=== PATIENT | male | born 1995 | race Caucasian/White ===

== ENCOUNTER 2018-08-23 18:54 | Inpatient (IN) | payer MEDICAID ==
[~2018-08-23] VITALS: Ht 175.3 cm; Wt 98.1 kg
[2018-08-23] MEDS ORDERED: LORazepam 2 MG/ML VIAL IM ONE (20:30)
[2018-08-23] MEDS ORDERED: HALOPERIDOL LACTATE 5 MG/ML VIAL IM ONE (20:30)
[2018-08-23] MEDS ORDERED: DiphenhydrAMINE HCL 50 MG/ML VIAL IM ONE (20:30)
[2018-08-23 20:58] LABS: AMPHET/METH SCREEN,URINE NEGATIVE (NEGATIVE); BARBITURATE SCREEN, URINE NEGATIVE (NEGATIVE); BENZODIAZEPINES SCREEN,URINE NEGATIVE (NEGATIVE); CANNABINOID SCREEN,URINE POSITIVE (NEGATIVE); COCAINE SCREEN,URINE NEGATIVE (NEGATIVE); METHADONE SCREEN, URINE NEGATIVE (NEGATIVE); OPIATE SCREEN,URINE NEGATIVE (NEGATIVE); PHENCYCLIDINE SCREEN,URINE NEGATIVE (NEGATIVE)
[2018-08-23 22:31] LABS: BASOPHILS % (AUTO) 0.5 % (0.0-2.0); EOSINOPHILS % (AUTO) 0.8 % (1.0-6.0); HEMATOCRIT 43.6 % (41-53); HEMOGLOBIN 14.5 g/dL (13.5-17.5); LYMPHOCYTES # (AUTO) 2.6 K/uL (1.0-4.8); LYMPHOCYTES % (AUTO) 22.2 % (22.0-44.0); MEAN CORPUSCULAR HEMOGLOBIN 27.5 pg (26.0-34.0); MEAN CORPUSCULAR HGB CONC 33.2 G/dL (31.0-37.0); MEAN CORPUSCULAR VOLUME 83 fL (80-100); MONOCYTES % (AUTO) 8.3 % (2.0-9.0); NEUTROPHILS # (AUTO) 7.9 K/uL (1.8-7.7); NEUTROPHILS % (AUTO) 68.2 % (40.0-70.0); PLATELET COUNT (AUTO) 258 K/uL (150-450); RED BLOOD CELL COUNT(AUTO) 5.27 MIL/uL (4.50-5.90); RED CELL DISTRIBUTION WIDTH 13.1 % (11.5-14.5)
[2018-08-23 22:43] LABS: ANION GAP 9 mmol/L (8-16); CALCIUM, TOTAL 8.8 mg/dL (8.8-10.5); CARBON DIOXIDE 26 mmol/L (22-29); CHLORIDE 104 mmol/L (98-107); CREATININE 0.84 mg/dL (0.60-1.30); GLOMERULAR FILTR. RATE CALC > 60 mL/min (>60); GLUCOSE,RANDOM 94 mg/dL (70-110); POTASSIUM 3.5 mmol/L (3.5-5.1); SODIUM SERUM 139 mmol/L (136-145); UREA NITROGEN, BLOOD 9 mg/dL (7-18)
[2018-08-23 22:48] LABS: ALANINE AMINOTRANSFERASE 24 U/L (12-78); ALBUMIN 3.4 g/dL (3.4-5.0); ALKALINE PHOSPHATASE 103 U/L (46-116); ASPARTATE AMINOTRANSFERASE 22 U/L (15-37); BILIRUBIN,TOTAL 0.2 mg/dL (0.1-1.0); TOTAL PROTEIN, SERUM 7.1 g/dL (6.4-8.2)
[2018-08-24 03:01] LABS: APPEARANCE,URINE CLEAR (CLEAR); BILIRUBIN,URINE NEGATIVE (NEGATIVE); GLUCOSE, URINE (UA) NEGATIVE (NEGATIVE); KETONES,URINE NEGATIVE (NEGATIVE); LEUKOCYTE ESTERASE ,URINE NEGATIVE (NEGATIVE); NITRATE,URINE NEGATIVE (NEGATIVE); OCCULT BLOOD,URINE NEGATIVE (NEGATIVE); PH,URINE 6.5 (5.0-8.0); PROTEIN,URINE NEGATIVE (NEGATIVE); UROBILINOGEN,URINE 0.2 mg/dL (<=1.0)
[2018-08-24 03:55] VITALS: BP 137/60
[2018-08-24 08:22] VITALS: BP 102/64
[2018-08-24] MEDS ORDERED: GuaiFENesin/D-METHORPHAN [SUGAR-FREE] 200-20MG/10 ML SYRUP UDCUP PO PRN (14:30)
[2018-08-24] MEDS ORDERED: TUBERCULIN, PURIFIED PROTEIN DERIVATIVE 5 TU/0.1 ML SYRINGE ID ONE (14:30)
[2018-08-24] MEDS ORDERED: ACETAMINOPHEN 325 MG TABLET PO PRN (14:30)
[2018-08-24] MEDS ORDERED: MAG HYDROX/AL HYDROX/SIMETH ES 30 ML SUSPENSION UDCUP PO PRN (14:30)
[2018-08-24] MEDS ORDERED: PROMETHAZINE HCL 25 MG TABLET PO PRN (14:30)
[2018-08-24] MEDS ORDERED: MAGNESIUM HYDROXIDE SUSPENSION 30 ML UDCUP PO PRN (14:30)
[2018-08-24] MEDS ORDERED: LOPERAMIDE HCL 2 MG CAPSULE PO PRN (14:30)
[2018-08-24 16:00] VITALS: BP 127/76
[2018-08-24] MEDS: THIAMINE HCL 100 MG TABLET PO SCH (16:46)
[2018-08-24] MEDS: LORazepam 2 MG TABLET PO PRN ×2 (16:46→20:47)
[2018-08-24] MEDS: OLANZapine 5 MG RAPDIS TABLET PO PRN (18:02)
[2018-08-24] MEDS: NICOTINE 21 MG/24 HOUR PATCH TD SCH (18:02)
[2018-08-24] MEDS: ZOLPIDEM TARTRATE 10 MG TABLET PO PRN (20:47)
[2018-08-24] MEDS ORDERED: OLANZapine 5 MG RAPDIS TABLET PO SCH (21:00)
[2018-08-25 06:28] VITALS: BP 106/62
[2018-08-25 07:43] LABS: BASOPHILS % (AUTO) 0.5 % (0.0-2.0); EOSINOPHILS % (AUTO) 2.1 % (1.0-6.0); HEMATOCRIT 46.9 % (41-53); HEMOGLOBIN 15.2 g/dL (13.5-17.5); LYMPHOCYTES # (AUTO) 3.2 K/uL (1.0-4.8); LYMPHOCYTES % (AUTO) 36.8 % (22.0-44.0); MEAN CORPUSCULAR HEMOGLOBIN 27.4 pg (26.0-34.0); MEAN CORPUSCULAR HGB CONC 32.3 G/dL (31.0-37.0); MEAN CORPUSCULAR VOLUME 85 fL (80-100); MONOCYTES # (AUTO) 0.6 K/uL (0.1-1.0); MONOCYTES % (AUTO) 6.7 % (2.0-9.0); NEUTROPHILS # (AUTO) 4.7 K/uL (1.8-7.7); NEUTROPHILS % (AUTO) 53.9 % (40.0-70.0); PLATELET COUNT (AUTO) 263 K/uL (150-450); RED BLOOD CELL COUNT(AUTO) 5.54 MIL/uL (4.50-5.90); RED CELL DISTRIBUTION WIDTH 13.2 % (11.5-14.5)
[2018-08-25] MEDS: MULTIVITAMINS WITH MINERALS, THERAPEUTIC TABLET PO SCH (09:44)
[2018-08-25] MEDS: LORazepam 2 MG TABLET PO PRN ×3 (09:45→20:45)
[2018-08-25] MEDS: THIAMINE HCL 100 MG TABLET PO SCH ×2 (09:45→17:52)
[2018-08-25] MEDS: NICOTINE 21 MG/24 HOUR PATCH TD SCH (09:45)
[2018-08-25] MEDS: NALTREXONE HCL 50 MG TABLET PO SCH (09:45)
[2018-08-25] MEDS: FOLIC ACID 1 MG TABLET PO SCH (09:45)
[2018-08-25] MEDS: OLANZapine 5 MG RAPDIS TABLET PO PRN (14:28)
[2018-08-25 16:21] VITALS: BP 137/78
[2018-08-25] MEDS: HydrOXYzine PAMOATE 50 MG CAPSULE PO PRN (17:52)
[2018-08-25] MEDS: ZOLPIDEM TARTRATE 10 MG TABLET PO PRN (20:45)
[2018-08-26 00:19] VITALS: BP 122/86
[2018-08-26] MEDS: LORazepam 2 MG TABLET PO PRN ×3 (06:34→20:36)
[2018-08-26 08:51] VITALS: BP 127/74
[2018-08-26] MEDS ORDERED: ARIPiprazole 15 MG TABLET PO SCH (09:00)
[2018-08-26] MEDS: NALTREXONE HCL 50 MG TABLET PO SCH (09:06)
[2018-08-26] MEDS: THIAMINE HCL 100 MG TABLET PO SCH ×2 (09:06→16:28)
[2018-08-26] MEDS: FOLIC ACID 1 MG TABLET PO SCH (09:06)
[2018-08-26] MEDS: NICOTINE 21 MG/24 HOUR PATCH TD SCH (09:06)
[2018-08-26] MEDS: MULTIVITAMINS WITH MINERALS, THERAPEUTIC TABLET PO SCH (09:06)
[2018-08-26 16:00] VITALS: BP 130/67
[2018-08-26] MEDS: HydrOXYzine PAMOATE 50 MG CAPSULE PO PRN ×2 (16:28→20:36)
[2018-08-26] MEDS: OLANZapine 5 MG RAPDIS TABLET PO PRN (16:28)
[2018-08-26] MEDS: ZOLPIDEM TARTRATE 10 MG TABLET PO PRN (20:36)
[2018-08-26] MEDS ORDERED: DiphenhydrAMINE HCL 50 MG/ML VIAL ONE (20:58)
[2018-08-26] MEDS ORDERED: HALOPERIDOL LACTATE 5 MG/ML VIAL ONE (20:58)
[2018-08-26] MEDS ORDERED: LORazepam 2 MG/ML VIAL ONE (20:58)
[2018-08-26] MEDS ORDERED: LORazepam 2 MG/ML VIAL IM ONE (21:15)
[2018-08-26] MEDS ORDERED: DiphenhydrAMINE HCL 50 MG/ML VIAL IM ONE (21:15)
[2018-08-26] MEDS ORDERED: HALOPERIDOL LACTATE 5 MG/ML VIAL IM ONE (21:15)
[2018-08-27 00:05] VITALS: BP 118/81
[2018-08-27] MEDS: NALTREXONE HCL 50 MG TABLET PO SCH (08:11)
[2018-08-27] MEDS: LORazepam 2 MG TABLET PO PRN ×3 (08:11→20:37)
[2018-08-27] MEDS: THIAMINE HCL 100 MG TABLET PO SCH ×2 (08:12→16:33)
[2018-08-27] MEDS: MULTIVITAMINS WITH MINERALS, THERAPEUTIC TABLET PO SCH (08:12)
[2018-08-27] MEDS: NICOTINE 21 MG/24 HOUR PATCH TD SCH (08:12)
[2018-08-27] MEDS: FOLIC ACID 1 MG TABLET PO SCH (08:12)
[2018-08-27 08:23] LABS: BASOPHILS % (AUTO) 0.5 % (0.0-2.0); EOSINOPHILS % (AUTO) 2.5 % (1.0-6.0); HEMATOCRIT 43.5 % (41-53); HEMOGLOBIN 14.2 g/dL (13.5-17.5); LYMPHOCYTES # (AUTO) 2.9 K/uL (1.0-4.8); LYMPHOCYTES % (AUTO) 38.4 % (22.0-44.0); MEAN CORPUSCULAR HEMOGLOBIN 27.7 pg (26.0-34.0); MEAN CORPUSCULAR HGB CONC 32.7 G/dL (31.0-37.0); MEAN CORPUSCULAR VOLUME 85 fL (80-100); MONOCYTES # (AUTO) 0.5 K/uL (0.1-1.0); NEUTROPHILS # (AUTO) 3.9 K/uL (1.8-7.7); NEUTROPHILS % (AUTO) 51.6 % (40.0-70.0); PLATELET COUNT (AUTO) 247 K/uL (150-450); RED BLOOD CELL COUNT(AUTO) 5.14 MIL/uL (4.50-5.90); RED CELL DISTRIBUTION WIDTH 13.2 % (11.5-14.5)
[2018-08-27 08:32] VITALS: BP 138/66
[2018-08-27] MEDS ORDERED: ARIPiprazole 15 MG TABLET PO SCH (09:00)
[2018-08-27] MEDS: IBUPROFEN 600 MG TABLET PO PRN (11:13)
[2018-08-27] MEDS ORDERED: RisperiDONE 1 MG TABLET PO PRN (13:15)
[2018-08-27] MEDS ORDERED: ACETAMINOPHEN 325 MG TABLET PO PRN (14:30)
[2018-08-27] MEDS: HydrOXYzine PAMOATE 50 MG CAPSULE PO PRN ×2 (16:33→20:37)
[2018-08-27 16:40] VITALS: BP 117/63
[2018-08-27] MEDS: ZOLPIDEM TARTRATE 10 MG TABLET PO PRN (20:37)
[2018-08-27] MEDS ORDERED: RisperiDONE 3 MG TABLET PO SCH (21:00)
[2018-08-27] MEDS ORDERED: DIVALPROEX SODIUM 500 MG ER TABLET PO SCH (21:00)
[2018-08-28 03:40] VITALS: BP 121/69
[2018-08-28] MEDS: LORazepam 2 MG TABLET PO PRN ×3 (04:19→12:16)
[2018-08-28] MEDS: FOLIC ACID 1 MG TABLET PO SCH (08:12)
[2018-08-28] MEDS: NALTREXONE HCL 50 MG TABLET PO SCH (08:12)
[2018-08-28] MEDS: THIAMINE HCL 100 MG TABLET PO SCH (08:12)
[2018-08-28] MEDS: MULTIVITAMINS WITH MINERALS, THERAPEUTIC TABLET PO SCH (08:12)
[2018-08-28] MEDS: NICOTINE 21 MG/24 HOUR PATCH TD SCH (08:13)
[2018-08-28] MEDS ORDERED: ARIPiprazole 10 MG TABLET PO SCH (09:00)
[2018-08-28 09:19] VITALS: BP 140/94
[2018-08-28 10:44] VITALS: BP 114/82
[2018-08-28] MEDS: IBUPROFEN 600 MG TABLET PO PRN (10:47)
[2018-08-28] MEDS ORDERED: DIVA-78 PO (13:53)
[2018-08-28] MEDS ORDERED: RISP3 PO (13:53)
[2018-08-28] MEDS ORDERED: NALT50TA6 PO (13:53)
== END 2018-08-28 16:35 | disposition home or self-care (01) | DRG 750 ==
LOC: EMS 18:57 → B3A 08-24 02:30
PROVIDERS: ADMIT Psychiatry & Neurology Psychiatry; ATTEND Psychiatry & Neurology Psychiatry
DX: F20.0 Paranoid schizophrenia (principal); R45.851 Suicidal ideations; Z78.1 Physical restraint status; D72.829 Elevated white blood cell count, unspecified; F12.10 Cannabis abuse, uncomplicated; F32.9 Major depressive disorder, single episode, unspecified; F60.0 Paranoid personality disorder; Z65.3 Problems related to other legal circumstances; Z68.31 Body mass index [BMI] 31.0-31.9, adult; Z87.891 Personal history of nicotine dependence; Z91.19 Patient's noncompliance with other medical treatment and regimen; Z91.5 Personal history of self-harm
CPT/HCPCS: 80074; 96372; 99291; G0480; J1200; J1630; J2060

== ENCOUNTER 2019-06-01 17:23 | Inpatient (IN) | payer MEDICAID ==
[~2019-06-01] VITALS: Ht 167.6 cm; Wt 104.2 kg
[~2019-06-01 17:23] MED LIST: DIVA-78 PO; NALT50TA6 PO; RISP3 PO
[2019-06-01] MEDS ORDERED: OLAN10TA3 PO (17:51)
[2019-06-01 18:20] LABS: BASOPHILS % (AUTO) 0.6 % (0.0-2.0); EOSINOPHILS % (AUTO) 1.3 % (1.0-6.0); HEMATOCRIT 42.3 % (41-53); HEMOGLOBIN 13.8 g/dL (13.5-17.5); LYMPHOCYTES # (AUTO) 2.8 K/uL (1.0-4.8); LYMPHOCYTES % (AUTO) 30.9 % (22.0-44.0); MEAN CORPUSCULAR HGB CONC 32.6 G/dL (31.0-37.0); MEAN CORPUSCULAR VOLUME 83 fL (80-100); MONOCYTES # (AUTO) 0.6 K/uL (0.1-1.0); NEUTROPHILS # (AUTO) 5.5 K/uL (1.8-7.7); NEUTROPHILS % (AUTO) 60.2 % (40.0-70.0); PLATELET COUNT (AUTO) 239 K/uL (150-450); RED BLOOD CELL COUNT(AUTO) 5.11 MIL/uL (4.50-5.90); RED CELL DISTRIBUTION WIDTH 13.5 % (11.5-14.5)
[2019-06-01 18:28] LABS: ANION GAP 9 mmol/L (8-16); CALCIUM, TOTAL 9.1 mg/dL (8.8-10.5); CARBON DIOXIDE 27 mmol/L (22-29); CHLORIDE 105 mmol/L (98-107); CREATININE 0.74 mg/dL (0.60-1.30); GLOMERULAR FILTR. RATE CALC > 60 mL/min (>60); GLUCOSE,RANDOM 88 mg/dL (70-110); POTASSIUM 3.7 mmol/L (3.5-5.1); SODIUM SERUM 141 mmol/L (136-145); UREA NITROGEN, BLOOD 9 mg/dL (7-18)
[2019-06-01 18:34] LABS: ALANINE AMINOTRANSFERASE 42 U/L (12-78); ALBUMIN 3.7 g/dL (3.4-5.0); ALKALINE PHOSPHATASE 113 U/L (46-116); ASPARTATE AMINOTRANSFERASE 21 U/L (15-37); BILIRUBIN,TOTAL 0.3 mg/dL (0.1-1.0); TOTAL PROTEIN, SERUM 7.4 g/dL (6.4-8.2)
[2019-06-01 18:58] LABS: VALPROIC ACID < 3 mcg/mL (50-100)
[2019-06-01] MEDS ORDERED: ZOLPIDEM TARTRATE 10 MG TABLET PO PRN (19:45)
[2019-06-01] MEDS ORDERED: HALOPERIDOL 5 MG TABLET PO PRN (19:45)
[2019-06-01 21:17] LABS: APPEARANCE,URINE CLEAR (CLEAR); BILIRUBIN,URINE NEGATIVE (NEGATIVE); GLUCOSE, URINE (UA) NEGATIVE (NEGATIVE); KETONES,URINE TRACE mg/dL (NEGATIVE); LEUKOCYTE ESTERASE ,URINE NEGATIVE (NEGATIVE); NITRATE,URINE NEGATIVE (NEGATIVE); OCCULT BLOOD,URINE NEGATIVE (NEGATIVE); PROTEIN,URINE NEGATIVE (NEGATIVE); UROBILINOGEN,URINE 0.2 mg/dL (<=1.0)
[2019-06-01 21:23] VITALS: BP 125/68
[2019-06-01 21:23] LABS: AMPHET/METH SCREEN,URINE NEGATIVE (NEGATIVE); BARBITURATE SCREEN, URINE NEGATIVE (NEGATIVE); BENZODIAZEPINES SCREEN,URINE NEGATIVE (NEGATIVE); CANNABINOID SCREEN,URINE NEGATIVE (NEGATIVE); COCAINE SCREEN,URINE NEGATIVE (NEGATIVE); METHADONE SCREEN, URINE NEGATIVE (NEGATIVE); OPIATE SCREEN,URINE NEGATIVE (NEGATIVE)
[2019-06-01 21:28] LABS: PHENCYCLIDINE SCREEN,URINE NEGATIVE (NEGATIVE)
[2019-06-02 07:17] LABS: CHOL/HDL RATIO 5.6 (4.2-7.3)
[2019-06-02] MEDS ORDERED: BENZOCAINE/MENTHOL LOZENGE MM PRN (08:00)
[2019-06-02] MEDS ORDERED: IBUPROFEN 600 MG TABLET PO PRN (08:00)
[2019-06-02] MEDS ORDERED: ONDANSETRON HCL 4 MG TABLET PO PRN (08:00)
[2019-06-02] MEDS ORDERED: BACITRACIN 28.4 GM OINTMENT TP PRN (08:00)
[2019-06-02] MEDS ORDERED: LOPERAMIDE HCL 2 MG CAPSULE PO PRN (08:00)
[2019-06-02] MEDS ORDERED: MAG HYDROX/AL HYDROX/SIMETH ES 30 ML SUSPENSION UDCUP PO PRN (08:00)
[2019-06-02] MEDS ORDERED: CloNIDine HCL 0.1 MG TABLET PO PRN (08:00)
[2019-06-02] MEDS ORDERED: ALBUTEROL SULFATE HFA 90 MCG/PUFF 8 GM INHALER IH PRN (08:00)
[2019-06-02] MEDS ORDERED: DOCUSATE SODIUM 100 MG CAPSULE PO PRN (08:00)
[2019-06-02] MEDS ORDERED: MAGNESIUM HYDROXIDE SUSPENSION 30 ML UDCUP PO PRN (08:00)
[2019-06-02] MEDS ORDERED: ACETAMINOPHEN 325 MG TABLET PO PRN (08:00)
[2019-06-02] MEDS ORDERED: OMEPRAZOLE 20 MG CAPSULE PO PRN (08:00)
[2019-06-02] MEDS ORDERED: PETROLATUM,WHITE 28 GM JELLY TP PRN (08:00)
[2019-06-02] MEDS: NICOTINE 21 MG/24 HOUR PATCH TD SCH (08:21)
[2019-06-02 08:54] VITALS: BP 142/80
[2019-06-02] MEDS: OLANZapine 7.5 MG TABLET PO SCH (20:17)
[2019-06-02 21:17] VITALS: BP 110/59
[2019-06-03 08:32] VITALS: BP 121/56
[2019-06-03] MEDS: NICOTINE 21 MG/24 HOUR PATCH TD SCH (08:58)
[2019-06-03 19:31] VITALS: BP 118/61
[2019-06-03] MEDS: OLANZapine 7.5 MG TABLET PO SCH (20:40)
[2019-06-04 03:52] VITALS: BP 102/67
[2019-06-04 08:45] VITALS: BP 132/66
[2019-06-04] MEDS: OMEGA-3/DHA/EPA/FISH OIL 1,000 MG CAPSULE PO SCH (09:22)
[2019-06-04] MEDS: NICOTINE 21 MG/24 HOUR PATCH TD SCH (09:23)
[2019-06-04 16:55] VITALS: BP 132/64
[2019-06-04] MEDS: OLANZapine 7.5 MG TABLET PO SCH (20:17)
[2019-06-05] MEDS: OMEGA-3/DHA/EPA/FISH OIL 1,000 MG CAPSULE PO SCH (09:35)
[2019-06-05] MEDS: NICOTINE 21 MG/24 HOUR PATCH TD SCH (09:35)
[2019-06-05 09:41] VITALS: BP 127/77
[2019-06-05] MEDS: LORazepam 2 MG TABLET PO PRN (16:33)
[2019-06-05 19:37] VITALS: BP 126/71
[2019-06-05] MEDS: OLANZapine 7.5 MG TABLET PO SCH (20:04)
[2019-06-06] MEDS: NICOTINE 21 MG/24 HOUR PATCH TD SCH (08:03)
[2019-06-06] MEDS: OMEGA-3/DHA/EPA/FISH OIL 1,000 MG CAPSULE PO SCH (08:03)
[2019-06-06 14:03] VITALS: BP 130/72
[2019-06-06 17:00] VITALS: BP 149/71
[2019-06-06] MEDS: OLANZapine 7.5 MG TABLET PO SCH (20:16)
[2019-06-07] MEDS: OMEGA-3/DHA/EPA/FISH OIL 1,000 MG CAPSULE PO SCH (08:49)
[2019-06-07] MEDS: NICOTINE 21 MG/24 HOUR PATCH TD SCH (08:49)
[2019-06-07 08:58] VITALS: BP 126/73
[2019-06-07] MEDS: LORazepam 2 MG TABLET PO PRN (15:47)
[2019-06-07 19:21] VITALS: BP 117/75
[2019-06-07] MEDS: OLANZapine 7.5 MG TABLET PO SCH (20:14)
[2019-06-08] MEDS: OMEGA-3/DHA/EPA/FISH OIL 1,000 MG CAPSULE PO SCH (08:03)
[2019-06-08] MEDS: NICOTINE 21 MG/24 HOUR PATCH TD SCH (08:03)
[2019-06-08 09:22] VITALS: BP 122/67
[2019-06-08 17:00] VITALS: BP 115/66
[2019-06-08] MEDS: OLANZapine 7.5 MG TABLET PO SCH (20:50)
[2019-06-09] MEDS: OMEGA-3/DHA/EPA/FISH OIL 1,000 MG CAPSULE PO SCH (08:29)
[2019-06-09] MEDS: NICOTINE 21 MG/24 HOUR PATCH TD SCH (08:30)
[2019-06-09 09:34] VITALS: BP 156/88
[2019-06-09 16:50] VITALS: BP 116/69
[2019-06-09] MEDS: OLANZapine 7.5 MG TABLET PO SCH (20:11)
[2019-06-09] MEDS: LORazepam 2 MG TABLET PO PRN (20:44)
[2019-06-10 08:26] VITALS: BP 134/99
[2019-06-10] MEDS ORDERED: FISH1CAP27 PO (08:31)
[2019-06-10] MEDS: OMEGA-3/DHA/EPA/FISH OIL 1,000 MG CAPSULE PO SCH (08:40)
[2019-06-10] MEDS: NICOTINE 21 MG/24 HOUR PATCH TD SCH (08:44)
== END 2019-06-10 10:00 | disposition home or self-care (01) | DRG 885 ==
LOC: EMS 17:24 → 3EI 20:30
PROVIDERS: ADMIT Psychiatry & Neurology Psychiatry; ATTEND Psychiatry & Neurology Psychiatry
DX: F25.9 Schizoaffective disorder, unspecified (principal); R45.851 Suicidal ideations; F17.200 Nicotine dependence, unspecified, uncomplicated; F12.90 Cannabis use, unspecified, uncomplicated; F41.9 Anxiety disorder, unspecified; G47.00 Insomnia, unspecified; K59.00 Constipation, unspecified
CPT/HCPCS: G0480

== ENCOUNTER 2020-10-04 13:55 | Inpatient (IN) | payer MEDICARE, MEDICAID ==
[~2020-10-04] VITALS: Ht 170.2 cm; Wt 112.5 kg
[~2020-10-04 13:55] MED LIST changes: -DIVA-78 PO; +FISH1CAP27 PO; -NALT50TA6 PO; +OLAN10TA74 PO; -RISP3 PO
[2020-10-04] MEDS ORDERED: DiphenhydrAMINE HCL 50 MG/ML VIAL IM ONE (15:00)
[2020-10-04] MEDS ORDERED: HALOPERIDOL LACTATE 5 MG/ML VIAL IM ONE (15:00)
[2020-10-04] MEDS ORDERED: LORazepam 2 MG/ML VIAL IM ONE (15:00)
[2020-10-04 15:08] LABS: BASOPHILS % (AUTO) 0.4 % (0.0-2.0); EOSINOPHILS % (AUTO) 1.2 % (1.0-6.0); HEMATOCRIT 39.1 % (41-53); HEMOGLOBIN 12.8 g/dL (13.5-17.5); LYMPHOCYTES # (AUTO) 1.8 K/uL (1.0-4.8); LYMPHOCYTES % (AUTO) 22.6 % (22.0-44.0); MEAN CORPUSCULAR HEMOGLOBIN 27.5 pg (26.0-34.0); MEAN CORPUSCULAR HGB CONC 32.6 G/dL (31.0-37.0); MEAN CORPUSCULAR VOLUME 84 fL (80-100); MONOCYTES # (AUTO) 0.6 K/uL (0.1-1.0); MONOCYTES % (AUTO) 7.7 % (2.0-9.0); NEUTROPHILS # (AUTO) 5.3 K/uL (1.8-7.7); NEUTROPHILS % (AUTO) 68.1 % (40.0-70.0); PLATELET COUNT (AUTO) 257 K/uL (150-450); RED BLOOD CELL COUNT(AUTO) 4.64 MIL/uL (4.50-5.90); RED CELL DISTRIBUTION WIDTH 13.5 % (11.5-14.5)
[2020-10-04 15:16] LABS: ANION GAP 8 mmol/L (8-16); CALCIUM, TOTAL 8.1 mg/dL (8.8-10.5); CARBON DIOXIDE 23 mmol/L (22-29); CHLORIDE 106 mmol/L (98-107); CREATININE 0.98 mg/dL (0.60-1.30); GLOMERULAR FILTR. RATE CALC > 60 mL/min (>60); GLUCOSE,RANDOM 101 mg/dL (70-110); POTASSIUM 3.5 mmol/L (3.5-5.1); SODIUM SERUM 137 mmol/L (136-145); UREA NITROGEN, BLOOD 9 mg/dL (7-18)
[2020-10-04 15:22] LABS: ALANINE AMINOTRANSFERASE 65 U/L (12-78); ALBUMIN 4.2 g/dL (3.4-5.0); ALKALINE PHOSPHATASE 110 U/L (46-116); ASPARTATE AMINOTRANSFERASE 69 U/L (15-37); BILIRUBIN,TOTAL 0.6 mg/dL (0.1-1.0); TOTAL PROTEIN, SERUM 7.5 g/dL (6.4-8.2)
[2020-10-04 15:36] LABS: BARBITURATE SCREEN, URINE NEGATIVE (NEGATIVE); BENZODIAZEPINES SCREEN,URINE NEGATIVE (NEGATIVE); CANNABINOID SCREEN,URINE NEGATIVE (NEGATIVE); COCAINE SCREEN,URINE NEGATIVE (NEGATIVE); METHADONE SCREEN, URINE NEGATIVE (NEGATIVE); OPIATE SCREEN,URINE NEGATIVE (NEGATIVE); PHENCYCLIDINE SCREEN,URINE NEGATIVE (NEGATIVE)
[2020-10-04 15:46] LABS: AMPHET/METH SCREEN,URINE NEGATIVE (NEGATIVE)
[2020-10-04 19:36] LABS: COVID AG,FIA SOURCE NASOPHARYNGEAL
[2020-10-04] MEDS: HALOPERIDOL 5 MG TABLET PO PRN (21:13)
[2020-10-04] MEDS: LORazepam 2 MG TABLET PO PRN (21:13)
[2020-10-05] MEDS: LORazepam 2 MG TABLET PO PRN ×2 (07:37→23:11)
[2020-10-05] MEDS: HALOPERIDOL 5 MG TABLET PO PRN ×2 (07:37→23:10)
[2020-10-05] MEDS ORDERED: IBUPROFEN 400 MG TABLET PO PRN (08:00)
[2020-10-05] MEDS ORDERED: MAGNESIUM HYDROXIDE SUSPENSION 30 ML UDCUP PO PRN (08:00)
[2020-10-05] MEDS ORDERED: MAG HYDROX/AL HYDROX/SIMETH ES 30 ML SUSPENSION UDCUP PO PRN (08:00)
[2020-10-05] MEDS ORDERED: PETROLATUM,WHITE 28 GM JELLY TP PRN (08:00)
[2020-10-05] MEDS ORDERED: DOCUSATE SODIUM 100 MG CAPSULE PO PRN (08:00)
[2020-10-05] MEDS ORDERED: ALBUTEROL SULFATE HFA 90 MCG/PUFF 8 GM INHALER IH PRN (08:00)
[2020-10-05] MEDS ORDERED: GuaiFENesin/D-METHORPHAN [SUGAR-FREE] 200-20MG/10 ML SYRUP UDCUP PO PRN (08:00)
[2020-10-05] MEDS ORDERED: CloNIDine HCL 0.1 MG TABLET PO PRN (08:00)
[2020-10-05] MEDS ORDERED: ONDANSETRON HCL 4 MG TABLET PO PRN (08:00)
[2020-10-05] MEDS ORDERED: LOPERAMIDE HCL 2 MG CAPSULE PO PRN (08:00)
[2020-10-05 08:10] VITALS: BP 109/63
[2020-10-05 09:03] LABS: CHOL/HDL RATIO 3.7 (4.2-7.3)
[2020-10-05] MEDS: QUEtiapine FUMARATE 100 MG TABLET PO SCH ×2 (11:38→16:25)
[2020-10-05 16:07] VITALS: BP 120/61
[2020-10-05] MEDS: OLANZapine 7.5 MG TABLET PO SCH (20:01)
[2020-10-05] MEDS: NICOTINE 14 MG/24 HOUR PATCH TD PRN (22:55)
[2020-10-05] MEDS: ACETAMINOPHEN 325 MG TABLET PO PRN (23:14)
[2020-10-06] MEDS: ZOLPIDEM TARTRATE 10 MG TABLET PO PRN ×2 (00:26→20:24)
[2020-10-06] MEDS: QUEtiapine FUMARATE 100 MG TABLET PO SCH ×2 (07:48→16:48)
[2020-10-06] MEDS: HALOPERIDOL 5 MG TABLET PO PRN ×2 (07:48→13:11)
[2020-10-06] MEDS: LORazepam 2 MG TABLET PO PRN ×2 (07:48→13:11)
[2020-10-06] MEDS: NICOTINE 14 MG/24 HOUR PATCH TD PRN (07:51)
[2020-10-06 08:24] VITALS: BP 108/62
[2020-10-06] MEDS: ACETAMINOPHEN 325 MG TABLET PO PRN (13:30)
[2020-10-06 16:30] VITALS: BP 144/83
[2020-10-06] MEDS: OLANZapine 7.5 MG TABLET PO SCH (20:25)
[2020-10-07] MEDS: LORazepam 2 MG TABLET PO PRN ×3 (02:16→12:32)
[2020-10-07] MEDS: HALOPERIDOL 5 MG TABLET PO PRN ×3 (02:17→12:32)
[2020-10-07] MEDS: NICOTINE 14 MG/24 HOUR PATCH TD PRN (08:03)
[2020-10-07] MEDS: QUEtiapine FUMARATE 100 MG TABLET PO SCH ×2 (08:03→16:18)
[2020-10-07 09:05] VITALS: BP 144/94
[2020-10-07 16:15] VITALS: BP 141/71
[2020-10-07] MEDS: OLANZapine 7.5 MG TABLET PO SCH (20:15)
[2020-10-07] MEDS: ZOLPIDEM TARTRATE 10 MG TABLET PO PRN (21:04)
[2020-10-08 05:48] VITALS: BP 148/83
[2020-10-08] MEDS: ACETAMINOPHEN 325 MG TABLET PO PRN (05:48)
[2020-10-08] MEDS: LORazepam 2 MG TABLET PO PRN ×2 (08:00→12:07)
[2020-10-08] MEDS: QUEtiapine FUMARATE 100 MG TABLET PO SCH (08:00)
[2020-10-08] MEDS: HALOPERIDOL 5 MG TABLET PO PRN ×2 (08:00→12:07)
[2020-10-08] MEDS: NICOTINE 14 MG/24 HOUR PATCH TD PRN (08:02)
[2020-10-08 08:25] VITALS: BP 154/80
[2020-10-08] MEDS ORDERED: QUET100T PO (12:27)
== END 2020-10-08 13:15 | disposition home or self-care (01) | DRG 885 ==
LOC: EMS 13:59 → 3EC 16:47
PROVIDERS: ADMIT Psychiatry & Neurology Child & Adolescent Psychiatry; ATTEND Psychiatry & Neurology Child & Adolescent Psychiatry
DX: F20.0 Paranoid schizophrenia (principal); E66.9 Obesity, unspecified; Z68.38 Body mass index [BMI] 38.0-38.9, adult; F15.10 Other stimulant abuse, uncomplicated; Z87.891 Personal history of nicotine dependence; Z91.19 Patient's noncompliance with other medical treatment and regimen; D64.9 Anemia, unspecified; Z20.822 Contact with and (suspected) exposure to COVID-19
CPT/HCPCS: 80053; 80061; 85025; 99285; G0480; J1200; J1630; J2060

== ENCOUNTER 2020-11-03 19:50 | Emergency (ER) | payer MEDICARE, MEDICAID ==
[~2020-11-03] VITALS: Ht 167.6 cm; Wt 110.9 kg
[~2020-11-03 19:50] MED LIST changes: -FISH1CAP27 PO; +QUET100T PO
[2020-11-03 20:30] VITALS: BP 129/89
[2020-11-03] MEDS ORDERED: ONDANSETRON HCL 4 MG TABLET PO ONE (20:30)
[2020-11-03 20:43] LABS: BASOPHILS % (AUTO) 0.6 % (0.0-2.0); EOSINOPHILS % (AUTO) 0.4 % (1.0-6.0); HEMATOCRIT 40.6 % (41-53); HEMOGLOBIN 13.1 g/dL (13.5-17.5); LYMPHOCYTES # (AUTO) 2.7 K/uL (1.0-4.8); LYMPHOCYTES % (AUTO) 22.3 % (22.0-44.0); MEAN CORPUSCULAR HEMOGLOBIN 27.5 pg (26.0-34.0); MEAN CORPUSCULAR HGB CONC 32.4 G/dL (31.0-37.0); MEAN CORPUSCULAR VOLUME 85 fL (80-100); MONOCYTES # (AUTO) 1.8 K/uL (0.1-1.0); MONOCYTES % (AUTO) 14.8 % (2.0-9.0); NEUTROPHILS # (AUTO) 7.4 K/uL (1.8-7.7); NEUTROPHILS % (AUTO) 61.9 % (40.0-70.0); PLATELET COUNT (AUTO) 280 K/uL (150-450); RED BLOOD CELL COUNT(AUTO) 4.78 MIL/uL (4.50-5.90); RED CELL DISTRIBUTION WIDTH 13.9 % (11.5-14.5)
[2020-11-03 20:50] LABS: ANION GAP 9 mmol/L (8-16); CALCIUM, TOTAL 9.1 mg/dL (8.8-10.5); CARBON DIOXIDE 28 mmol/L (22-29); CHLORIDE 105 mmol/L (98-107); CREATININE 0.65 mg/dL (0.60-1.30); GLOMERULAR FILTR. RATE CALC > 60 mL/min (>60); GLUCOSE,RANDOM 99 mg/dL (70-110); POTASSIUM 3.8 mmol/L (3.5-5.1); SODIUM SERUM 142 mmol/L (136-145); UREA NITROGEN, BLOOD 7 mg/dL (7-18)
[2020-11-03 20:56] LABS: ALANINE AMINOTRANSFERASE 78 U/L (12-78); ALBUMIN 3.6 g/dL (3.4-5.0); ALKALINE PHOSPHATASE 121 U/L (46-116); ASPARTATE AMINOTRANSFERASE 34 U/L (15-37); BILIRUBIN,TOTAL 0.3 mg/dL (0.1-1.0); LIPASE 61 U/L (73-393); TOTAL PROTEIN, SERUM 7.3 g/dL (6.4-8.2)
[2020-11-03 21:33] LABS: AMPHET/METH SCREEN,URINE NEGATIVE (NEGATIVE); BARBITURATE SCREEN, URINE NEGATIVE (NEGATIVE); BENZODIAZEPINES SCREEN,URINE NEGATIVE (NEGATIVE); CANNABINOID SCREEN,URINE NEGATIVE (NEGATIVE); COCAINE SCREEN,URINE NEGATIVE (NEGATIVE); METHADONE SCREEN, URINE NEGATIVE (NEGATIVE); OPIATE SCREEN,URINE NEGATIVE (NEGATIVE); PHENCYCLIDINE SCREEN,URINE NEGATIVE (NEGATIVE)
== END 2020-11-03 22:07 | disposition home or self-care (01) ==
LOC: EMS 19:55
DX: R11.2 Nausea with vomiting, unspecified (principal); F20.9 Schizophrenia, unspecified; F17.210 Nicotine dependence, cigarettes, uncomplicated; F12.90 Cannabis use, unspecified, uncomplicated
CPT/HCPCS: 36415; 80053; 80307; 83690; 85025; 99284; G0480; Q0162

== ENCOUNTER 2020-11-06 16:18 | Emergency (ER) | payer MEDICARE, MEDICAID ==
[~2020-11-06] VITALS: Ht 175.3 cm; Wt 104.5 kg
[2020-11-06] MEDS ORDERED: SODIUM CHLORIDE 0.9% 1,000 ML IV ONE (16:45)
[2020-11-06 17:10] LABS: BASOPHILS % (AUTO) 0.3 % (0.0-2.0); EOSINOPHILS % (AUTO) 0.5 % (1.0-6.0); HEMATOCRIT 37.2 % (41-53); HEMOGLOBIN 12.1 g/dL (13.5-17.5); LYMPHOCYTES # (AUTO) 2.5 K/uL (1.0-4.8); LYMPHOCYTES % (AUTO) 19.3 % (22.0-44.0); MEAN CORPUSCULAR HEMOGLOBIN 27.7 pg (26.0-34.0); MEAN CORPUSCULAR HGB CONC 32.4 G/dL (31.0-37.0); MEAN CORPUSCULAR VOLUME 85 fL (80-100); MONOCYTES # (AUTO) 1.6 K/uL (0.1-1.0); MONOCYTES % (AUTO) 12.7 % (2.0-9.0); NEUTROPHILS # (AUTO) 8.6 K/uL (1.8-7.7); NEUTROPHILS % (AUTO) 67.2 % (40.0-70.0); PLATELET COUNT (AUTO) 301 K/uL (150-450); RED BLOOD CELL COUNT(AUTO) 4.36 MIL/uL (4.50-5.90); RED CELL DISTRIBUTION WIDTH 14.1 % (11.5-14.5)
[2020-11-06 17:15] LABS: ANION GAP 7 mmol/L (8-16); CALCIUM, TOTAL 8.7 mg/dL (8.8-10.5); CARBON DIOXIDE 26 mmol/L (22-29); CHLORIDE 103 mmol/L (98-107); CREATININE 0.92 mg/dL (0.60-1.30); GLOMERULAR FILTR. RATE CALC > 60 mL/min (>60); GLUCOSE,RANDOM 91 mg/dL (70-110); POTASSIUM 3.7 mmol/L (3.5-5.1); SODIUM SERUM 136 mmol/L (136-145); UREA NITROGEN, BLOOD 5 mg/dL (7-18)
[2020-11-06 17:29] LABS: AMPHET/METH SCREEN,URINE NEGATIVE (NEGATIVE); BARBITURATE SCREEN, URINE NEGATIVE (NEGATIVE); BENZODIAZEPINES SCREEN,URINE POSITIVE (NEGATIVE); CANNABINOID SCREEN,URINE NEGATIVE (NEGATIVE); COCAINE SCREEN,URINE NEGATIVE (NEGATIVE); METHADONE SCREEN, URINE NEGATIVE (NEGATIVE); OPIATE SCREEN,URINE NEGATIVE (NEGATIVE)
[2020-11-06 17:34] LABS: PHENCYCLIDINE SCREEN,URINE NEGATIVE (NEGATIVE)
[2020-11-06 17:40] LABS: ALANINE AMINOTRANSFERASE 56 U/L (12-78); ALBUMIN 3.4 g/dL (3.4-5.0); ALKALINE PHOSPHATASE 105 U/L (46-116); ASPARTATE AMINOTRANSFERASE 34 U/L (15-37); BILIRUBIN,TOTAL 0.4 mg/dL (0.1-1.0); CREATINE KINASE, TOTAL ONLY 745 U/L (39-308); TOTAL PROTEIN, SERUM 6.7 g/dL (6.4-8.2)
[2020-11-06] MEDS ORDERED: HALOPERIDOL LACTATE 5 MG/ML VIAL IM ONE (17:45)
[2020-11-06 20:26] VITALS: BP 115/71
== END 2020-11-06 20:29 | disposition home or self-care (01) ==
LOC: EMS 16:18
DX: F20.9 Schizophrenia, unspecified (principal); F17.210 Nicotine dependence, cigarettes, uncomplicated; F12.90 Cannabis use, unspecified, uncomplicated; Z79.899 Other long term (current) drug therapy
CPT/HCPCS: 36415; 80053; 80307; 82550; 85025; 96360; 96372; 99291; G0480; J1630; J7030